=== PATIENT | male | born 1985 | race Two or more races ===

== ENCOUNTER 2019-01-25 03:24 | Emergency (ER) | payer SELFPAY ==
[2019-01-25 03:27] VITALS: BP 142/87
== END 2019-01-25 07:44 | disposition left against medical advice (07) ==
LOC: ER 03:30
DX: S61.211A Laceration without foreign body of left index finger without damage to nail, initial encounter (principal); Z53.21 Procedure and treatment not carried out due to patient leaving prior to being seen by health care provider; X58.XXXA Exposure to other specified factors, initial encounter; Y93.89 Activity, other specified; Y99.8 Other external cause status; Y92.89 Other specified places as the place of occurrence of the external cause